=== PATIENT | male | born 1950 | race African-American/Black ===

== ENCOUNTER 2018-04-27 18:07 | Emergency (ER) | payer SELFPAY ==
[2018-04-27 18:46] LABS: #Basophils 0.1 thou/uL (0.0-0.2); #Eosinphils 0.2 thou/uL (0.0-0.7); #Lymphocytes 1.8 thou/uL (1.20-3.40); #Monocytes 0.5 thou/uL (0.11-0.59); #Neutrophils 3.3 thou/uL (1.40-6.50); %Basophils 1.9 % (0.0-1.0); %Eosinophils 2.8 % (0.0-10.0); %Lymphocytes 30.1 % (21.0-51.0); %Monocytes 8.9 % (0.0-10.0); %Neutrophils 56.3 % (42.0-75.0); Hemoglobin 11.5 g/dL (14.0-18.0); Mean Corpuscular HGB CONC 33.4 g/dL (32.0-36.0); Mean Corpuscular Hemoglobin 30.6 pg (27.0-31.0); Mean Corpuscular Volume 91.6 fL (78.0-98.0); Mean Platelet Volume 10.8 fL (7.4-10.4); Platelet Count 201 thou/uL (130-400); RBC Distribution Width 12.1 % (11.5-14.5); Red Blood Cell (RBC) Count 3.75 mill/uL (4.70-6.10); White Blood Cell (WBC) Count 5.8 thou/uL (4.8-10.8)
[2018-04-27] MEDS ORDERED: Furosemide 40 MG/4 ML VIAL ONE (18:48)
[2018-04-27] MEDS ORDERED: Ketorolac Tromethamine 30 MG/ML VIAL ONE (18:48)
[2018-04-27 19:02] LABS: ALT (SGPT) 18 U/L (8-55); AST (SGOT) 24 U/L (5-34); Albumin 4.1 g/dL (3.4-4.8); Alkaline Phosphatase 60 U/L (40-150); Anion Gap 15 mmol/L (10-20); BUN (Urea Nitrogen) 16 mg/dL (8.4-25.7); Bilirubin, Total 0.3 mg/dL (0.2-1.2); Calc. Creatinine Clearance 0 mL/min (70-130); Calcium 9.8 mg/dL (7.8-10.44); Carbon Dioxide 24 mmol/L (23-31); Chloride 100 mmol/L (98-107); Estimated GFR-MDRD Greater than 90; Globulin 4.1 g/dL (2.4-3.5); Glucose 165 mg/dL (80-115); Potassium 3.4 mmol/L (3.5-5.1); Protein, Total 8.2 g/dL (5.8-8.1); Sodium 136 mmol/L (136-145)
[2018-04-27 19:03] LABS: Base Excess-Venous 3.6 mmol/L (0 (+/- 2.5)); Bicarbonate (HCO3v) 28.5 mmol/L (1.0-85.0); CO2 Tension (PvCO2) 43.1 mmHg (41.0-51.0); O2 Tension (PvO2) 70.5 mmHg (35.0-45.0); pH (Venous) 7.428 (7.35-7.45)
[2018-04-27 19:04] LABS: vO2 Saturation-calc 94.2 % (94-98)
[2018-04-27 19:04] LABS: CKMB 1.5 ng/mL (0-6.6); Troponin I 0.011 ng/mL (< 0.028)
[2018-04-27 19:50] LABS: Clarity Clear (Clear); Leukocyte Trace (Negative); Nitrite Negative (Negative)
[2018-04-27 19:51] LABS: Bilirubin Negative (Negative); Blood, Urine Trace (Negative); Glucose, Urine (Dipstick) Negative (Negative); Protein, Urine (Dipstick) Negative (Neg-Trace); RBC/HPF 0-3 HPF (0-3); Urobilinogen 0.2 mg/dL (0.2-1.0)
[2018-04-27 19:52] LABS: Bacteria/HPF Rare-Few HPF (None Seen); Squamous Epithelial 0-3 HPF (0-3); WBC/HPF 0-3 HPF (0-3)
[2018-04-27 21:03] LABS: Troponin I 0.017 ng/mL (< 0.028)
--- NOTE | 2018-04-27 21:49 | RAD ---
PORTABLE CHEST: 04/27/18 An AP portable film at 1825 shows mild cardiomegaly. There is very slight prominence of the vessels, so I cannot exclude early congestion. No large effusions or focal infiltrates were appreciated. IMPRESSION: Cardiomegaly and questionable vascular prominence. POS: HOME
--- NOTE | 2018-04-27 21:58 | CT ---
CT ANGIO OF THE CHEST WITH CONTRAST 04/27/[address] of the chest was performed for evaluation of shortness of breath and an elevated D-dimer. A xial slices were acquired after a bolus of IV contrast in oblique coronal reformations through the pu lmonary arteries were done later. There is moderately good opacification of the pulmonary arteries. No defects were seen in the larger branches to suggest emboli. Small peripheral emboli might be missed by this study. There is no sign o f aortic aneurysm or dissection. No pericardial fluid was seen. There is good filling of the coronary arteries, but there may be calci fications in the left coronary system. The patient's esophagus seems slightly thick throughout. I can not exclude possibility of esophagitis. The thyroid seems somewhat large and the left lobe in particu lar descends into a substernal location. Additionally, there are a few mildly enlarged nodes scattere d throughout the mediastinum. The largest are just lateral to the aortic arch and measure about 1.3 t o 1.5 cm in size. interestingly, there are also some somewhat enlarged nodes in each axilla ranging u p to 2 cm in size. Emphysematous changes are seen throughout the lungs with various blebs here and there. There is a gen eralized haziness to the lungs throughout, all zones. This may be due to some baseline fibrosis but a lso possibly some mild edema. There are no large effusions. Scans into the upper abdomen showed a slightly nodular appearance to the right adrenal gland. I canno t exclude a 1 cm nodule in it, but other studies would be needed to be certain. Degenerative changes are present in the spine. IMPRESSION: 1. No evidence of pulmonary embolism. 2. Mild cardiomegaly. No sign of pericardial effusion. 3. COPD with prominent haziness to the lungs. See discussion above. 4. Mild thickening of the esophagus, cannot rule out esophagitis. 5. Thyroid enlargement, particularly the left lobe, though a focal mass was not appreciated. 6. Some prominence of the size of lymph nodes in each axilla and a few in the mediastinum, thoug h there is no massive adenopathy in any one spot. POS: HOME
[2018-04-28 10:38] LABS: Hemoglobin - Calc 12.3 g/dL (12.0-18.0); Potassium 3.2 mmol/L (3.4-4.7); T. Carbon Dioxide 29.8 mmol/L (1.0-85.0)
[2018-04-28 10:39] LABS: Calcium, Ionized 1.15 mmol/L (1.12-1.32)
== END 2018-04-27 21:24 | disposition home or self-care (01) ==
LOC: BURERS 18:07
DX: I11.0 Hypertensive heart disease with heart failure (principal); I50.9 Heart failure, unspecified; E11.9 Type 2 diabetes mellitus without complications; F17.210 Nicotine dependence, cigarettes, uncomplicated; Z79.899 Other long term (current) drug therapy; Z79.84 Long term (current) use of oral hypoglycemic drugs
CPT/HCPCS: 71045; 71275; 80053; 81003; 81015; 82330; 82553; 82803; 83605; 83880; 84484; 85025; 85379; 93005; 96374; J1885; J1940

== ENCOUNTER 2018-05-09 14:43 | Emergency (ER) | payer OTHER, SELFPAY ==
[2018-05-09 15:50] LABS: #Basophils 0.1 thou/uL (0.0-0.2); #Eosinphils 0.2 thou/uL (0.0-0.7); #Lymphocytes 1.6 thou/uL (1.20-3.40); #Monocytes 0.5 thou/uL (0.11-0.59); #Neutrophils 3.6 thou/uL (1.40-6.50); %Basophils 1.3 % (0.0-1.0); %Eosinophils 2.9 % (0.0-10.0); %Neutrophils 60.8 % (42.0-75.0); Mean Corpuscular HGB CONC 33.4 g/dL (32.0-36.0); Mean Corpuscular Volume 92.7 fL (78.0-98.0); Mean Platelet Volume 10.4 fL (7.4-10.4); Platelet Count 212 thou/uL (130-400); RBC Distribution Width 12.6 % (11.5-14.5); Red Blood Cell (RBC) Count 3.56 mill/uL (4.70-6.10); White Blood Cell (WBC) Count 5.9 thou/uL (4.8-10.8)
[2018-05-09 16:08] LABS: ALT (SGPT) 16 U/L (8-55); AST (SGOT) 19 U/L (5-34); Albumin 3.9 g/dL (3.4-4.8); Alkaline Phosphatase 62 U/L (40-150); Anion Gap 14 mmol/L (10-20); BUN (Urea Nitrogen) 19 mg/dL (8.4-25.7); Bilirubin, Total 0.2 mg/dL (0.2-1.2); Calc. Creatinine Clearance 0 mL/min (70-130); Calcium 9.1 mg/dL (7.8-10.44); Carbon Dioxide 25 mmol/L (23-31); Chloride 103 mmol/L (98-107); Estimated GFR-MDRD 90; Globulin 3.8 g/dL (2.4-3.5); Glucose 158 mg/dL (80-115); Potassium 3.6 mmol/L (3.5-5.1); Protein, Total 7.7 g/dL (5.8-8.1); Sodium 138 mmol/L (136-145)
[2018-05-09] MEDS ORDERED: Furosemide 40 MG/4 ML VIAL ONE (16:14)
[2018-05-09] MEDS ORDERED: Furosemide 40 MG TAB ONE (16:17)
[2018-05-09] MEDS ORDERED: Lidocaine 1% 20 ML MDV ONE (17:00)
--- NOTE | 2018-05-09 18:15 | CT ---
CT OF THE BRAIN WITHOUT CONTRAST 05/09/18 The ventricles are normal in size with no shift. No intracranial bleeding, mass, or sign of stroke wa s found. The calvarium appears intact. The visible paranasal sinuses are clear as are the mastoid air cells. There may be some mild mucosal thickening in the ethmoid sinuses. IMPRESSION: No acute intracranial findings. POS: HOME
--- NOTE | 2018-05-09 18:16 | RAD ---
CHEST TWO VIEWS 05/09/18 Comparison is made with the 04/27/18 study. The heart size is stable. There are no congestive changes or pleural effusions. No focal pulmonary in filtrate was seen. Degenerative changes are seen in the spine. IMPRESSION: No acute thoracic findings. POS: HOME
== END 2018-05-09 16:25 | disposition home or self-care (01) ==
LOC: BURERS 14:43
DX: I11.0 Hypertensive heart disease with heart failure (principal); I50.9 Heart failure, unspecified; F17.210 Nicotine dependence, cigarettes, uncomplicated; Z79.899 Other long term (current) drug therapy; Z79.84 Long term (current) use of oral hypoglycemic drugs
CPT/HCPCS: 70450; 71046; 80053; 83880; 85025; J1940; J2001